=== PATIENT | male | born 1995 | race Caucasian/White ===

== ENCOUNTER 2022-10-02 03:57 | Observation (INO) | payer BC ==
[2022-10-02] MEDS ORDERED: Dicyclomine 20 MG/2 ML VIAL ONE (04:20)
[2022-10-02] MEDS ORDERED: Morphine 4 MG/ML VIAL ONE (04:20)
[2022-10-02] MEDS ORDERED: Ondansetron PF 4 MG/2 ML Vial ONE ×3 (04:20→10:13)
[2022-10-02 04:54] LABS: #Basophils 0.1 thou/uL (0.0-0.2); #Eosinphils 0.1 thou/uL (0.0-0.7); #Lymphocytes 2.6 thou/uL (1.20-3.40); #Monocytes 0.7 thou/uL (0.11-0.59); #Neutrophils 7.9 thou/uL (1.40-6.50); %Basophils 0.9 % (0.0-1.0); %Eosinophils 0.9 % (0.0-10.0); %Lymphocytes 22.5 % (21.0-51.0); %Monocytes 5.9 % (0.0-10.0); %Neutrophils 69.8 % (42.0-75.0); Mean Corpuscular HGB CONC 34.1 g/dL (32.0-36.0); Mean Corpuscular Hemoglobin 30.5 pg (27.0-31.0); Mean Corpuscular Volume 89.4 fl (78.0-98.0); Platelet Count 269 thou/uL (130-400); RBC Distribution Width 11.4 % (11.5-14.5); Red Blood Cell (RBC) Count 5.58 mill/uL (4.70-6.10); White Blood Cell (WBC) Count 11.3 thou/uL (4.8-10.8)
[2022-10-02 05:16] LABS: ALT (SGPT) 60 U/L (8-55); AST (SGOT) 30 U/L (5-34); Albumin 4.6 g/dL (3.5-5.0); Alkaline Phosphatase 71 U/L (40-110); Anion Gap 12 mmol/L (10-20); BUN (Urea Nitrogen) 13 mg/dL (8.9-20.6); Bilirubin, Total 0.6 mg/dL (0.2-1.2); Calc. Creatinine Clearance 0 mL/min (70-130); Calcium 9.8 mg/dL (7.8-10.44); Carbon Dioxide 25 mmol/L (22-29); Chloride 105 mmol/L (98-107); Estimated GFR 79; Globulin 2.1 g/dL (2.4-3.5); Glucose 112 mg/dL (70-105); Lipase 20 U/L (8-78); Potassium 4.2 mmol/L (3.5-5.1); Protein, Total 6.7 g/dL (6.0-8.3); Sodium 138 mmol/L (136-145)
[2022-10-02] MEDS ORDERED: Piperacillin/Tazobactam 4.5 GM VIAL ONE (05:44)
[2022-10-02 07:36] VITALS: BMI 31.0
[2022-10-02] MEDS ORDERED: Ondansetron PF 4 MG/2 ML Vial IVP PRN ×2 (07:44→12:57)
[2022-10-02] MEDS ORDERED: Ondansetron ODT 8 MG TAB PO PRN (07:44)
[2022-10-02] MEDS ORDERED: Sodium Chloride 0.9% 1,000 ML IV SCH (07:45)
[2022-10-02] MEDS ORDERED: Acetaminophen 325 MG TAB PO PRN (07:45)
[2022-10-02 08:08] LABS: Bilirubin Negative (Negative); Blood, Urine Negative (Negative); Clarity Clear (Clear); Glucose, Urine (Dipstick) Normal (Negative); Ketone, Urine Negative (Negative); Leukocyte Negative Leu/uL (Negative); Nitrite Negative (Negative); Protein, Urine (Dipstick) Negative (Neg-Trace); Urobilinogen Normal mg/dL (Less than 2)
[2022-10-02 08:10] LABS: Specific Gravity, Urine 1.046 (1.002-1.036)
[2022-10-02] MEDS ORDERED: Iopamidol-370 76% 500 ML 1 ML ONE (08:18)
[2022-10-02] MEDS ORDERED: Bupivacaine PF 0.5% 30 ML VIAL ONE (09:28)
[2022-10-02] MEDS ORDERED: Lidocaine 1% (PF) 30 ML VIAL ONE (09:28)
[2022-10-02] MEDS ORDERED: EPINEPHrine 1 MG/ML AMP ONE (09:28)
[2022-10-02] MEDS ORDERED: fentaNYL PF 100 MCG/2 ML SYRINGE ONE (09:42)
[2022-10-02] MEDS ORDERED: Dexmedetomidine 200 MCG/2 ML VIAL ONE (10:00)
[2022-10-02] MEDS ORDERED: Dexamethasone 20 MG/5 ML VIAL ONE (10:13)
[2022-10-02] MEDS ORDERED: Glycopyrrolate 0.2 MG/ML 5 ML SYRINGE ONE (10:13)
[2022-10-02] MEDS ORDERED: ePHEDrine 50 MG/ML VIAL ONE (10:13)
[2022-10-02] MEDS ORDERED: PROPOFOL 200 MG/20 ML VIAL ONE (10:13)
[2022-10-02] MEDS ORDERED: NEOSTIGMINE 3 MG/3 ML SYR 3 MG/3 ML SYRINGE ONE (10:13)
[2022-10-02] MEDS ORDERED: Rocuronium Bromide 10 MG/ML (10ML VIAL) ONE (10:13)
[2022-10-02] MEDS ORDERED: SUGAMMADEX SODIUM 200 MG/2 ML VIAL ONE (10:46)
[2022-10-02] MEDS ORDERED: Ondansetron HCl/PF 4 MG/2 ML Vial IVP PRN (11:00)
[2022-10-02] MEDS ORDERED: Promethazine HCl 25 MG/ML VIAL IVPB PRN (11:00)
[2022-10-02] MEDS ORDERED: Ketorolac Tromethamine 30 MG/ML VIAL IVP PRN (11:00)
[2022-10-02] MEDS ORDERED: Promethazine HCl 25 MG/ML VIAL IM PRN ×2 (11:00→12:57)
[2022-10-02] MEDS ORDERED: Ketorolac Tromethamine 30 MG/ML VIAL ONE (11:21)
[2022-10-02] MEDS ORDERED: HYDROcodone/Acetaminophen 10/325 mg Tablet PO PRN (12:57)
[2022-10-02] MEDS ORDERED: hydrALAZINE 20 MG/ML VIAL SLOW IVP PRN (12:57)
[2022-10-02] MEDS ORDERED: Morphine 4 MG/ML VIAL SLOW IVP PRN (12:57)
[2022-10-02] MEDS ORDERED: Dextrose 50% Abboject 50 ML SYRINGE SLOW IVP PRN (12:57)
[2022-10-02] MEDS ORDERED: Dextrose 5% in Water 1,000 ML IV PRN (12:57)
[2022-10-02 13:26] VITALS: BP 123/86; TEMP 97.2
[2022-10-02] MEDS ORDERED: Piperacillin/Tazobactam 3.375 GM in Sodium Chloride 0.9% 100 ML IVPB SCH (14:00)
[2022-10-02] MEDS ORDERED: Famotidine 20 MG TAB PO SCH (21:00)
[2022-10-02] MEDS ORDERED: Famotidine/PF 20 mg/2ml Vial SLOW IVP SCH (21:00)
== END 2022-10-02 14:30 | disposition home or self-care (01) ==
LOC: ERS 03:57 → SURG A 06:11 → INTOOBSV 06:11
PROVIDERS: ADMIT Surgery; ATTEND Surgery
PROC: 0DTJ4ZZ Resection of Appendix, Percutaneous Endoscopic Approach (ICD-10-PCS; principal; 2022-10-02)
DX: K35.80 Unspecified acute appendicitis (principal); K66.0 Peritoneal adhesions (postprocedural) (postinfection); F12.11 Cannabis abuse, in remission; Z87.891 Personal history of nicotine dependence
CPT/HCPCS: 74177; 80053; 81003; 83690; 85025; 86140; 88304; 96372; 96374; 96375; A4649; J0171; J1100; J1885; J2001; J2270; J2405; J2543; J2704; J3490; J7050; Q9967; S0020

== ENCOUNTER 2025-10-08 15:10 | Outpatient (CLI) | payer OTHER | END 2025-10-08 15:11 | disposition home or self-care (01) | LOC: BICRAD 15:10 | PROVIDERS: ATTEND Chiropractor | DX: M46.96 Unspecified inflammatory spondylopathy, lumbar region (principal); M48.061 Spinal stenosis, lumbar region without neurogenic claudication; M48.07 Spinal stenosis, lumbosacral region | CPT/HCPCS: 72070; 72100 ==